=== PATIENT | female | born 1995 | race Two or more races ===

== ENCOUNTER 2023-01-08 12:25 | Emergency (ER) | payer MEDICAID, OTHER ==
[~2023-01-08] VITALS: Ht 165.1 cm; Wt 63.0 kg
[2023-01-08] MEDS ORDERED: SODIUM CHLORIDE 0.9% 1,000 ML IV ONE (12:30)
[2023-01-08 12:53] VITALS: BP 114/59; RESP 18; TEMP 97.3; O2SAT 99
[2023-01-08 13:31] LABS: Basophils # (auto) 0 10 ^3/uL (0-0.2); Basophils % (auto) 0.5 % (0.0-2.0); Eosinophils # (auto) 0.1 10 ^3/uL (0-0.8); Eosinophils % (auto) 1.4 % (0.0-7.0); Hematocrit 44.9 % (36.0-46.0); Hemoglobin 14.6 g/dL (12.2-16.2); Lymphocytes # (auto) 1.4 10 ^3/uL (0.4-5.4); Lymphocytes % (auto) 16.1 % (10.0-50.0); Mean Corpuscular Hemoglobin 28.9 pg (28.0-32.0); Mean Corpuscular Hgb Conc. 32.6 g/dL (32.0-36.0); Mean Corpuscular Volume 88.5 fL (80.0-100.0); Monocytes # (auto) 0.6 10 ^3/uL (0-1.3); Monocytes % (auto) 7.3 % (0.0-12.0); Neutrophils # (auto) 6.4 10 ^3/uL (1.6-8.6); Neutrophils % (auto) 74.7 % (37.0-80.0); Nucleated Red Blood Cells % 0.1 %; Red Blood Cells 5.07 10^6/uL (4.0-5.20); Red Cell Distribution Width 14.5 % (11.8-14.3); White Blood Cell 8.5 10^3/uL (4.4-10.8)
[2023-01-08 13:33] VITALS: PULSE 61
[2023-01-08 14:36] LABS: Alanine Aminotransferase 13 U/L (7-40); Albumin 4.3 g/dL (3.2-4.8); Alkaline Phosphatase 48 U/L (46-116); Anion Gap 9.4 (5-15); Aspartate Aminotransferase 13 U/L (13-40); BUN/Creatinine Ratio 9.3 (10.0-20.0); Bilirubin, Total 0.7 mg/dL (0.2-1.0); Blood Urea Nitrogen 9 mg/dL (9-23); Calcium 9.4 mg/dL (8.5-10.1); Carbon Dioxide 21.6 mmol/L (20-30); Chloride 110 mmol/L (98-107); Glucose 87 mg/dL (74-106); Potassium 4.2 mmol/L (3.5-5.1); Sodium 141 mmol/L (136-145)
[2023-01-08 14:49] LABS: Amphetamine Screen, Urine Neg (NEGATIVE); Barbiturate Scree,Urine Neg (NEGATIVE); Benzodiazephine Screen, Urine Neg (NEGATIVE); Cocaine Screen, Urine Neg (NEGATIVE); Opiate Scree,Urine Neg (NEGATIVE); Phencyclidine Screen, Urine Neg (NEGATIVE)
[2023-01-08 14:50] LABS: Cannabinoid Screen, Urine Neg (NEGATIVE)
[2023-01-08 14:57] LABS: Urine Bacteria NONE SEEN /hpf (None Seen); Urine Blood 3+ /uL (Negative); Urine Clarity CLOUDY (Clear); Urine Color Yellow (Yellow); Urine Mucus MODERATE (None Seen); Urine Protein, UAD 1+ (Negative); Urine Specific Gravity 1.026 (1.001-1.035); Urine Urobilinogen Normal (Negative); Urine WBC 5 /hpf (0 - 5); Urine WBC Clumps PRESENT /hpf (None Seen); Urine pH 5.5 (5.0-8.0)
[2023-01-08 15:31] VITALS: PULSE 59
== END 2023-01-08 16:15 | disposition home or self-care (01) ==
LOC: ER 12:25 → EDBD 12:25 → ER 16:14
DX: R55 Syncope and collapse (principal); R10.2 Pelvic and perineal pain; Z79.899 Other long term (current) drug therapy
CPT/HCPCS: 36415; 80053; 80307; 81001; 84702; 85025; 93005; 96360; 99284; J7030

== ENCOUNTER 2024-12-17 22:56 | Emergency (ER) | payer MEDICAID ==
[~2024-12-17] VITALS: Ht 165.1 cm; Wt 69.9 kg
[2024-12-18 00:29] LABS: Hematocrit 42.8 % (36.0-46.0); Hemoglobin 15.0 g/dL (12.2-16.2); Mean Corpuscular Hemoglobin 30.4 pg (28.0-32.0); Mean Corpuscular Volume 86.7 fL (80.0-100.0); Nucleated Red Blood Cells % 0.0 %
[2024-12-18 00:37] LABS: Chloride 106 mmol/L (98-107); Potassium 3.6 mmol/L (3.5-5.1); Sodium 139 mmol/L (136-145)
[2024-12-18 00:38] LABS: Anion Gap 9 (5-15); Carbon Dioxide 24 mmol/L (20-31)
[2024-12-18 00:39] LABS: Calcium 9.0 mg/dL (8.7-10.4)
[2024-12-18 00:43] LABS: Glucose 91 mg/dL (74-106)
[2024-12-18 00:44] LABS: BUN/Creatinine Ratio 14.9 (10.0-20.0); Blood Urea Nitrogen 11 mg/dL (9-23)
--- NOTE | 2024-12-18 01:48 | DVH ---
OBSTETRIC ULTRASOUND PRIOR TO 14 WEEKS CLINICAL INDICATION: Vaginal Bleeding during TECHNIQUE: Multiple grayscale ultrasound images were obtained of the pelvis via transabdominal and tr ansvaginal approach for obstetric evaluation. Limited color Doppler and spectral Doppler acquisitions were also obtained. COMPARISON: None FINDINGS: Uterus: 8.3 x 5.2 x 5.0 cm. There is a single intrauterine gestational sac is visualized. A teresa e is visualized measuring 0.78 cm compatible with an estimated gestational age of 6 weeks, 5 days. N o heart tones are seen. Right adnexa: right ovary not visualized. No right adnexal mass seen. Left adnexa: left ovary not visualized. No left adnexal mass seen. Other: None IMPRESSION: Intrauterine with a pole measuring 7.1 mm without heart tones on transvaginal i maging , diagnostic of failed 1st trimester .
[2024-12-18 02:05] LABS: Urine Protein, UAD Negative (Negative)
[2024-12-18 02:33] VITALS: BP 126/76; PULSE 76; RESP 18; TEMP 99.8; O2SAT 100
--- NOTE | 2024-12-18 02:36 | ED.PDOC ---
[facility] HPI Comments 29-year-old female presents with chief complaint nonradiating, suprapubic abdominal pain and abnormal vaginal. Patient endorses on being a to 9 weeks . Is on sudden, unprovoked, and atraumatic onset of symptoms, this morning. Pain is a 7/10 in severity constant and cramping in quality. Bleeding quality is described to be similar to regular periods and to only occur whenever for urinating. No recent injuries, sick contact, sexual activities, substance use, or further pertinent history endorsed. Patient denies having any urinary symptoms, nausea, vomiting, lightheadedness, or further associated symptoms. REVIEW OF SYSTEMS: General: No fever, no chills, or fatigue HEENT: No sore throat, no earache, no congestion, no neck pain. Cardiac: No chest pain. No palpitations. Lungs: No shortness of breath, no cough. GI: Suprapubic abdominal. No nausea, no vomiting, no diarrhea, no constipation : Abnormal vaginal bleeding. No dysuria, frequency, or urgency. No hematuria. Musculoskeletal: No joint pain , no joint swelling, no extremity edema. Skin: No rash, no itching. Neuro: No headache, no dizziness, no weakness PHYSICAL EXAM: General: Awake, alert and oriented. No acute distress. Skin: Skin in warm, dry and intact. Appropriate color for ethnicity. HEENT: The head is normocephalic and atraumatic. Conjunctivae are clear without exudates or hemorrhage. Sclera is non-icteric. EOM are intact. No signs of nystagmus. Eyelids are normal in appearance without swelling or lesions. Oral mucosa is pink and moist Neck: The neck is supple with normal range of motion. No JVD. Cardiac: Heart rate and rhythm are normal. No murmurs, gallops, or rubs are auscultated. Respiratory: No signs of respiratory distress. Lung sounds are clear in all lobes bilaterally without rales, rhonchi, or wheezes. Abdominal: Mild suprapubic abdominal tenderness. Otherwise, remaining abdomen is soft, non-tender without distention, guarding or rigidity. Bowel sounds are present and normoactive in all four quadrants. Extremities: Upper and lower extremities are atraumatic in appearance without deformity or edema. Neurological: The patient is awake, alert and oriented to person, place, and time with normal speech. Speech is clear. There is no facial asymmetry. Psychiatric: Appropriate mood and affect. Good judgement and insight. Chief Complaint: Vaginal Bleed Time Seen by MD: 23:45 Reviewed Notes: Nurses Notes, Medications, Allergies Allergies: Coded Allergies: NO KNOWN ALLERGIES (Unverified , 01/08/23) Information Source: Patient Mode of Arrival: Ambulatory Timing: Hours Prehospital treatment: None Severity: Moderate Past Medical History PAST MEDICAL HISTORY: Denies Surgical History: Denies all surgeries FISH CUTTING MACHINE OPERATOR History: No Pertinent FISH CUTTING MACHINE OPERATOR History Family History Family History: Family hx of DM Social History Smoker: Non-Smoker Alcohol: Denies ETOH Use Drugs: Denies Drug Use Lives In: Home Was a procedure done? Was a procedure done?: No Differential Diagnosis (FISH CUTTING MACHINE OPERATOR) Vaginal Bleeding: - Complete, - Incomplete, - Inevitable, - Missed, - Threatened, Blood Loss Anemia, Ectopic , Placenta Previa X-Ray, Labs, Meds, VS Vital Signs Date Time Temp Pulse Resp B/P (MAP) Pulse Ox O2 Delivery O2 Flow Rate FiO2 12/18/24 02:33 99.8 76 18 126/76 (93) 100 99.8 12/17/24 22:56 98.3 67 20 134/94 99 98.3 Lab Test 12/17/24 23:55 12/17/24 23:47 Range/Units White Blood Count 7.1 4.4-10.8 10^3/uL Red Blood Count 4.93 4.0-5.20 10^6/uL Hemoglobin 15.0 12.2-16.2 g/dL Hematocrit 42.8 36.0-46.0 % Mean Corpuscular Volume 86.7 80.0-100.0 fL Mean Corpuscular Hemoglobin 30.4 28.0-32.0 pg Mean Corpuscular Hemoglobin Concent 35.0 32.0-36.0 g/dL Red Cell Distribution Width 13.8 11.8-14.3 % Platelet Count 255 140-450 10^3/uL Mean Platelet Volume 7.8 6.9-10.8 fL Neutrophils (%) (Auto) 53.4 37.0-80.0 % Lymphocytes (%) (Auto) 34.7 10.0-50.0 % Monocytes (%) (Auto) 8.4 0.0-12.0 % Eosinophils (%) (Auto) 2.9 0.0-7.0 % Basophils (%) (Auto) 0.6 0.0-2.0 % Neutrophils # (Auto) 3.8 1.6-8.6 10 ^3/uL Lymphocytes # (Auto) 2.5 0.4-5.4 10 ^3/uL Monocytes # (Auto) 0.6 0-1.3 10 ^3/uL Eosinophils # (Auto) 0.2 0-0.8 10 ^3/uL Basophils # (Auto) 0 0-0.2 10 ^3/uL Nucleated Red Blood Cells 0.0 % Sodium Level 139 136-145 mmol/L Potassium Level 3.6 3.5-5.1 mmol/L Chloride Level 106 98-107 mmol/L Carbon Dioxide Level 24 20-31 mmol/L Anion Gap 9 5-15 Blood Urea Nitrogen 11 9-23 mg/dL Creatinine 0.74 0.550-1.02 mg/dL Glomerular Filtration Rate Calc 113 >90 mL/min BUN/Creatinine Ratio 14.9 10.0-20.0 Serum Glucose 91 74-106 mg/dL Calcium Level 9.0 8.7-10.4 mg/dL Beta HCG, Quantitative 43451.8 H 1.5-4.2 mIU/mL Urine Color Colorless Yellow Urine Clarity Turbid H Clear Urine pH 6.0 5.0-9.0 Urine Specific [place] 1.017 1.001-1.035 Urine Protein Negative Negative Urine Ketones Negative Negative Urine Blood 3+ H Negative /uL Urine Nitrite Negative Negative Urine Bilirubin Negative Negative Urine Urobilinogen Normal Negative mg/dL Urine Leukocyte Esterase Negative Negative /uL Urine RBC 41 0 - 4 /hpf Urine Microscopic WBC 6 H 0-5 /HPF Urine Squamous Epithelial Cells Few <5 /hpf Urine Bacteria None seen None Seen /hpf Urine Mucus Few None Seen Urine Glucose Normal Normal mg/dL Chlamydia trachomatis ([facility]) Pending Neisseria gonorrhoeae ([facility]) Pending [address] [address] Ph: [phone] DIAGNOSTIC IMAGING Diagnostic Imaging Report : [id number] Signed PATIENT: EDOUARD COULTER ACCT: [id number] UNIT: [id number] : 1995 LOC: ER ROOM / BED: / AGE / SEX: 29 / F ADM STATUS: REG ER SERVICE 0000 ORDERING PHYSICIAN: JEMAL LR MD PROCEDURE(s): OB4US - OB ULTRASOUND COMP LESS 14WKS REASON: Vaginal Bleeding during ORDER NUMBER(s): [id number], ACCESSION NUMBER(s): [id number] OBSTETRIC ULTRASOUND PRIOR TO 14 WEEKS CLINICAL INDICATION: Vaginal Bleeding during TECHNIQUE: Multiple grayscale ultrasound images were obtained of the pelvis via transabdominal and transvaginal approach for obstetric evaluation. Limited color Doppler and spectral Doppler acquisitions were also obtained. COMPARISON: None FINDINGS: Uterus: 8.3 x 5.2 x 5.0 cm. There is a single intrauterine gestational sac is visualized. A pole is visualized measuring 0.78 cm compatible with an estimated gestational age of 6 weeks, 5 days. No heart tones are seen. Right adnexa: right ovary not visualized. No right adnexal mass seen. Left adnexa: left ovary not visualized. No left adnexal mass seen. Other: None IMPRESSION: Intrauterine with a pole measuring 7.1 mm without heart tones on transvaginal imaging , diagnostic of failed 1st trimester . ATED BY: SELINA COSTELLO MD DICTATED DATE/TIME: 12/18/24144 SIGNED BY: SELINA COSTELLO MD SIGNED DATE/TIME: 12/18/24144 CC: Time of 1ST Reevaluation: 00:15 Reevaluation 1ST: Unchanged Patient Education/Counseling: Need For Follow Up Family Education/Counseling: No Family Present Departure 1 Departure Time of Disposition: 02:42 Impression: Primary Impression: Missed Additional Impression: Miscarriage Disposition: 01 HOME / SELF CARE / HOMELESS Condition: Stable Additional Instructions: ED DISCHARGE INSTRUCTIONS Instructions: Please read all instructions provided in this packet carefully. Although you have been discharged from the Emergency Department, this does not mean that you have a "clean bill of health". It is possible that you are in the process of developing a serious illness. This is why you must return to the ED without fail if any new or worsening symptoms (especially if your symptoms include chest pain, trouble breathing, abdominal pain, fever, headache, confusion, trouble seeing, or trouble walking) It is also very important that you see a primary care provider (PCP) within the next 1-3 days to follow up. If you are unable to get an appointment, return to the ED for re-evaluation. Your blood type is O positive A copy of your ultrasound report is included below: Miscarriage: Care Instructions Skip Navigation Overview For some, the loss of a can be very hard. You may wonder why it happened. Miscarriages are common and are not caused by things like exercise or sex. Most happen because the embryo doesn't develop properly. There is no treatment that can stop a miscarriage. If you are having a miscarriage, you have several options. As long as you do not have heavy blood loss, fever, weakness, or other signs of infection, you can let a miscarriage follow its own course. This can take several days. If you don't want to wait, you can take medicine to help the tissue pass. Or you can have a surgi tierra procedure to remove the tissue. Your body will recover over the next several weeks. Having a miscarriage does not mean you cannot have a normal in the future. Follow-up care is a alba part of your treatment and safety. Be sure to make and go to all appointments, and contact your doctor if you are having problems. It's also a good idea to know your test results and keep a list of the medicines you take. How can you care for yourself at home? You will probably have some vaginal bleeding for 1 to 2 weeks. It may be similar to or slightly heavier than a normal period. The bleeding should get lens shaper grinder after a week. Use sanitary pads until you stop bleeding. Using pads makes it easier to monitor your bleeding. Take an hoib-ybd-qgfqwhz pain medicine, such as acetaminophen (Tylenol), ibuprofen (Advil, Motrin), or naproxen (Aleve) for cramps. Read and follow all instructions on the label. You may have cramps for several days after the miscarriage. Do not take two or more pain medicines at the same time unless the doctor or dispatcher chief oil told you to. Many pain medicines have acetaminophen, which is Tylenol. Too much acetaminophen (Tylenol) can be harmful. Ask your doctor or dispatcher chief oil when it is okay for you to have sex. You may return to your normal activities if you feel well enough to do so. If you would like to try to get again, it is usually safe whenever you feel ready. Talk with your doctor or dispatcher chief oil about any future plans. If you do not want to get , ask your doctor or dispatcher chief oil about control. You can get again before your next period starts if you are not using control. You may be low in iron because of blood loss. Eat a variety of healthy foods and choose foods high in iron and vitamin C. Foods rich in iron include red meat, shellfish, eggs, beans, and leafy green vegetables. Foods high in vitamin C include citrus fruits, tomatoes, and broccoli. Talk to your doctor or dispatcher chief oil about whether you need to take iron pills or a multivitamin. For some, the loss of a can be very hard. You may have a range of emotions. If you need help coping, talking to family members, friends, a coun selor, or your doctor or dispatcher chief oil may help. You can also call the Maternal Mental Health Hotline at 1-041-ZXQ-[facility] ( ) for support. If you feel very sad or depressed for longer than a couple of weeks, talk to a counselor or your doctor or dispatcher chief oil. When should you call for help? Call 981 anytime you think you may need emergency care. For example, call if: You have severe vaginal bleeding. You have soaked through one or more pads in an hour, and the bleeding is not slowing down. You have severe pain in your belly or pelvis. You have severe dizziness or lightheadedness, or you passed out (lost consciousness). You suddenly feel confused or have trouble staying awake. You have trouble breathing. You feel you cannot stop from hurting yourself or someone else. Where to get help 24 hours a day, 7 days a week If you or someone you know talks about suicide, self-harm, a mental health crisis, a substance use crisis, or any other kind of emotional distress, get help right away. You can: Call or text the Suicide and Crisis Lifeline at 878. Text HOME to 436653 to access the Crisis Text Line. Consider saving these numbers in your phone. Go to [employer] for more information or to chat online. Contact your doctor or dispatcher chief oil now or seek immediate medical care if: You have heavy vaginal bleeding. This means that you are soaking through one or more pads in an hour. Or you pass blood clots bigger than an egg. You are dizzy or lightheaded, or you feel like you may faint. You have new or worse pain in your belly or pelvis. You have a fever. You have vaginal discharge that smells bad. Watch closely for changes in your health, and be sure to contact your doctor or dispatcher chief oil if: You do not get better as expected. ULTRASOUND REPORT: OBSTETRIC ULTRASOUND PRIOR TO 14 WEEKS CLINICAL INDICATION: Vaginal Bleeding during TECHNIQUE: Multiple grayscale ultrasound images were obtained of the pelvis via transabdominal and transvaginal approach for obstetric evaluation. Limited color Doppler and spectral Doppler acquisitions were also obtained. COMPARISON: None FINDINGS: Uterus: 8.3 x 5.2 x 5.0 cm. There is a single intrauterine gestational sac is visualized. A pole is visualized measuring 0.78 cm compatible with an estimated gestational age of 6 weeks, 5 days. No heart tones are seen. Right adnexa: right ovary not visualized. No right adnexal mass seen. Left adnexa: left ovary not visualized. No left adnexal mass seen. Other: None IMPRESSION: Intrauterine with a pole measuring 7.1 mm without heart tones on transvaginal imaging , diagnostic of failed 1st trimester . Comments MDM: 29 year-old female who presents to the emergency department with pelvic cramping in vaginal spotting. Ultrasound reveals likely missed . Patient is well-appearing, afebrile, not hypotensive. Discussed return precautions with the patient Extensive evaluation was performed in attempt to identify or rule out: (See differential diagnosis section) The following tests were ordered, and results were reviewed by me and discussed with patient: (See diagnostic results section) The following test were independently interpreted by me: Type and screen, chlamydia and GC amplification, BNP, UA, beta quant, CBC I reviewed the following notes from the pt's past medical encounters: January 08, 2023 encounter for near-syncope Additional information was gathered from interviewing the following independent historians: N/A Discussion of management or test interpretation with external physician/other qualified health floor care specialist: N/A Decision regarding hospitalization or escalation of hospital level of care: Risks and benefits of admission for further treatment of patient's condition was considered however due to patient's stable condition patient will be discharged to follow up closely or return to care for worsening of condition or inability to follow up. Critical Care Note Critical Care Time?: No Stability Stability form required: No Heart Score Heart Score: Heart Score Response (Comments) Value History N/A 0 EKG N/A 0 Age N/A 0 Risk Factors N/A 0 Troponin N/A 0 Total 0 I personally scribed for JEMAL LR MD ([email or web address]) on 12/18/24 at 02:36. Electronically submitted by Dionicio Moseley ([email or web address]). I personally scribed for JEMAL LR MD ([email or web address]) on 12/18/24 at 03:20. Electronically submitted by Dionicio Moseley ([email or web address]). JEMAL LR MD Dec 18, 2024 02:36
[2024-12-20 01:06] LABS: Chlamydia Trachomatis, NAA Negative (Negative); Neisseria gonorrhoeae, NAA Negative (Negative)
== END 2024-12-18 04:51 | disposition home or self-care (01) ==
LOC: ER 22:56
DX: O02.1 Missed abortion (principal); O44.11 Complete placenta previa with hemorrhage, first trimester; Z3A.09 9 weeks gestation of pregnancy
CPT/HCPCS: 36415; 76801; 80048; 81001; 84702; 85025; 86850; 86900; 86901